=== PATIENT | male | born 1975 | race Caucasian/White ===

== ENCOUNTER 2018-12-14 21:23 | Inpatient (IN) | payer OTHER ==
[~2018-12-14] VITALS: Ht 193 cm; Wt 225.3 kg
[~2018-12-14 21:23] MED LIST: AZIT250 PO; CARI350 PO; CEPH500 PO; CIPR500 PO; CLOT1TC TOP; CYCL10 PO; Cleocin HCl300 MG PO; FISH1000; FURO20; FURO40; FURO40 PO; GEMF600 PO; HYDACE10B PO; HYDACE5 PO; HYDACE5325 PO; HYDGUAL120 PO; LISI10; LISI10 PO; LISI5 PO; NAPR500 PO; OXYACE5T PO; OXYACE7.5T PO; POTCHL10ER; POTCHL20ER; POTCHL20ER PO; Percocet 10-321 EACH PO; RANI150 PO; RXCEPH500 PO; RXOXYACE PO; SERT50; SULTRIDS PO
[2018-12-14 22:00] LABS: BASOPHILS ABSOLUTE AUTO 0.05 K/mm3 (0.00-0.23); BASOPHILS PERCENT AUTO 0 % (0-2); EOSINOPHILS PERCENT AUTO 0 % (0-6); Hemoglobin 16.5 g/dL (13.5-17.5); IMMATURE GRAN ABSOLUTE AUTO 0.22 K/mm3 (0.00-0.10); IMMATURE GRAN PERCENT AUTO 1 % (0-1); LYMPHOCYTES ABSOLUTE AUTO 0.38 K/mm3 (0.84-5.20); LYMPHOCYTES PERCENT AUTO 2 % (21-46); MONOCYTES PERCENT AUTO 2 % (4-13); Mean Corpuscular HGB 31.3 pg (26.0-34.0); Mean Corpuscular HGB Conc 33.7 g/dL (31.5-36.5); Mean Corpuscular Volume 93 fL (80-100); Mean Platelet Volume 9.4 fL (9.1-12.4); NEUTROPHILS PERCENT AUTO 95 % (41-73); Platelet Count 183 K/mm3 (150-400); RDW Coefficient Variation 12.5 % (11.7-14.2); RDW Standard Deviation 43.2 fL (35.1-46.3); Red Blood Cell Count 5.28 M/mm3 (4.30-5.90); White Blood Cell Count 20.65 K/mm3 (4.00-11.30)
[2018-12-14 22:31] LABS: Alanine Aminotransfer (ALT/SGP 39 U/L (12-78); Albumin, Blood 3.7 g/dL (3.4-5.0); Albumin/Globulin Ratio 0.9 (0.8-1.8); Alk Phos 71 U/L (50-136); Anion Gap 10 mmol/L (6-16); Aspartate Aminotrans (AST/SGOT 20 U/L (12-37); Bilirubin, Total 1.1 mg/dL (0.1-1.0); Blood Urea Nitrogen 16 mg/dL (8-24); Bun/Creatinine Ratio 13.2 (12.0-20.0); CO2, Blood 23 mmol/L (21-32); Calcium, Blood 8.8 mg/dL (8.5-10.1); Chloride, Blood 102 mmol/L (98-108); Creatinine, Blood 1.21 mg/dL (0.60-1.20); Globulin, Blood 4.3 g/dL (2.2-4.0); Glomerular Filtration Rate >60 (60-); Glucose, Blood 129 mg/dL (70-99); Potassium, Blood 3.8 mmol/L (3.5-5.5); Sodium, Blood 135 mmol/L (136-145)
[2018-12-14 23:10] LABS: International Normalized Ratio 1.08; Prothrombin Time Results 11.4 Sec (9.7-11.5)
--- NOTE | 2018-12-15 00:30 | NUR ---
RECEIVED HAND OFF FROM ESTER OBRIEN USING SBAR. TRANSPORTED TO ICU 13 VIA STRETCHER. TRANSFERED SELF TO BED WITH STANDBY ASSIST, TOLERATED WELL. AAO X3, KLINE, FOLLOWS ALL COMMANDS. ORIENTED TO ROOM, CALL SYSTEM, AND POC, VOICES UNDERSTANDING. RESPIRATIONS EVEN, RAPID, AND UNLABORED ON ROOM AIR. LUNG SOUNDS CLEAR BILATERALLY. ABDOMEN SOFT AND NONDISTENDED. BOWEL SOUNDS ORESENT IN ALL QUADS. CONTINENT OF BOWEL AND BLADDER, USES COMMODE. RIGHT AND LEFT AC SL PIV'S ARE PATENT, FLUSHING WITH EASE AND GOOD BLOOD RETURN NOTED. SPOUSE AT BEDSIDE, STATES THAT SHE IS GOING HOME TO GET HIS CPAP THAT HE MUST WEAR DUE TO OBSTRUCTIVE SLEEP APNEA WELL SOME OTHER PERSONAL BELONGINGS THAT HE HAS REQUESTED. DENIES PAIN, DISCOMFORT, OR FURTHER NEEDS AT THIS TIME. SAFETY MEAUSRES IN PLACE. ADMISSION ASSESSMENT IN PROGRESS, WILL MEREDITH COOL.
[2018-12-15 01:58] LABS: BASOPHILS ABSOLUTE AUTO 0.03 K/mm3 (0.00-0.23); BASOPHILS PERCENT AUTO 0 % (0-2); EOSINOPHILS PERCENT AUTO 0 % (0-6); Hematocrit 46.7 % (37.0-53.0); Hemoglobin 15.5 g/dL (13.5-17.5); IMMATURE GRAN ABSOLUTE AUTO 0.11 K/mm3 (0.00-0.10); IMMATURE GRAN PERCENT AUTO 1 % (0-1); LYMPHOCYTES ABSOLUTE AUTO 0.57 K/mm3 (0.84-5.20); LYMPHOCYTES PERCENT AUTO 3 % (21-46); MONOCYTES ABSOLUTE AUTO 0.32 K/mm3 (0.16-1.47); MONOCYTES PERCENT AUTO 2 % (4-13); Mean Corpuscular HGB 31.4 pg (26.0-34.0); Mean Corpuscular HGB Conc 33.2 g/dL (31.5-36.5); Mean Corpuscular Volume 95 fL (80-100); Mean Platelet Volume 9.5 fL (9.1-12.4); NEUTROPHILS ABSOLUTE AUTO 16.53 K/mm3 (1.96-9.15); NEUTROPHILS PERCENT AUTO 94 % (41-73); Platelet Count 171 K/mm3 (150-400); RDW Coefficient Variation 12.8 % (11.7-14.2); RDW Standard Deviation 44.1 fL (35.1-46.3); Red Blood Cell Count 4.94 M/mm3 (4.30-5.90); White Blood Cell Count 17.56 K/mm3 (4.00-11.30)
[2018-12-15 02:13] LABS: Anion Gap 7 mmol/L (6-16); Blood Urea Nitrogen 16 mg/dL (8-24); Bun/Creatinine Ratio 12.8 (12.0-20.0); CO2, Blood 25 mmol/L (21-32); Chloride, Blood 105 mmol/L (98-108); Creatinine, Blood 1.25 mg/dL (0.60-1.20); Glomerular Filtration Rate >60 (60-); Glucose, Blood 113 mg/dL (70-99); Potassium, Blood 3.9 mmol/L (3.5-5.5); Sodium, Blood 137 mmol/L (136-145)
--- NOTE | 2018-12-15 06:23 | NUR ---
SHIFT SUMMARY HAS RESTED WELL AFTER ADMISSION TO UNIT. BOLUS' COMPLETED AND MAINTANACE IVF INFUSING WITHOUT DIFFICULTY. POSITIONAL PIV'S, PUMP ALARMS WHEN PT BENDS HIS ARMS, VERY COOPERATIVE WHEN ASKED TO KEEP ELBOWS STRAIGHT. RESTED WELL IN JU[facility] BED AFTER TRANSFERED FROM ICU BED. CURRENTLY ON COMMODE AFTER AMBULATION WITH STAFF ASSISTANCE. WILL GIVE HAND OFF TO ONCOMING SHIFT USING SBAR.
--- NOTE | 2018-12-15 06:40 | NUR ---
LARGE BM NOTED. PT ASSISTED BACK TO BED AND PLACED BACK ON CAPSULE. DENIES FURTHER NEEDS AT THIS TIME. WILL CONTINUE TO MONITOR.
--- NOTE | 2018-12-15 07:15 | NUR ---
START OF SHIFT NOTE: RECEIVED REPORT, ASSUMED CARE, PATIENT IS AWAKE, ALERT AND ORIENTED, LUNG SOUNDS DIMINISHED, PATIENT DENIES PAIN, BUT HAS A TEMP OF 101.9, RECEIVED 2 TYLENOL PO, SWALLOWED WITHOUT ANY PROBLEM, UP TO ROOM TOILET, PATIENT EXTREMELY SHORT OF BREATH JUST FROM GETTING OOB TO TOILET AND BACK TO BED, PATIENT URINATED AND HAD BM, RETURNED TO BED, ATE ONLY SMALL AMOUNT OF BREAKFAST, SOB WITH ANY TYPE OF EXERTION, HEART SOUNDS DISTANT, BILATERAL LOWER EXTREMITIES DISCOLORED, RIGHT LOWER EXTREMITY RED AND WARM, CALL LIGHT IN REACH, WILL CONTINUE TO MONITOR.
--- NOTE | 2018-12-15 08:50 | NUR ---
DR. SULLIVAN CALLED AND UPDATED ON PATIENT CONDITION, PATIENT THRASHING ABOUT IN BED COMPALINING "I AM SO UNCOMFORTABLE AND HOT, WHEN CAN I GO HOME", PER DR. SULLIVAN WILL TRY COOLING BLANKET AND ICE BAGS, CALL LIGHT IN REACH, WILL CONTINUE TO MONITOR.
--- NOTE | 2018-12-15 09:12 | NUR ---
PATIENT ATTACHED TO COOLING BLANKET, ALSO ICE BAGS PLACED TO BOTH AXILLARIES,CALL LIGHT IN REACH, WILL CONTINUE TO MONITOR.
--- NOTE | 2018-12-15 10:24 | NUR ---
DIVYA, CASE MANAGEMENT, IN TO SEE PATIENT, ALSO PATIENT'S CALLED AND WAS PROVIDED AN UPDATE VIA TELEPHONE.
--- NOTE | 2018-12-15 11:30 | NUR ---
DR. SULLIVAN IN TO SEE PATIENT, NO NEW ORDERS RECEIVED.
--- NOTE | 2018-12-15 11:41 | NUR ---
PATIENT CONTINUES TO BE THRASHING ABOUT AND NOT "GETTING COMFORTABLE", TEMPERATURE DOWN TO 99.1, CALL LIGHT IN REACH, WILL CONTINUE TO MONITOR.
--- NOTE | 2018-12-15 13:27 | NUR ---
AND FAMILY IN TO SEE PATIENT, UPDATE ON CONDITION PROVIDED, CALL LIGHT IN REACH, WILL CONTINUE TO MONITOR.
[2018-12-15 15:15] LABS: Adenovirus F 40/41 Not Detected (NOT DETECT); Astrovirus Not Detected (NOT DETECT); Campylobacter Sp Not Detected (NOT DETECT); Cryptosporidium Not Detected (NOT DETECT); Cyclospora Cayetanensis Not Detected (NOT DETECT); E. Coli O157 Not Detected (NOT DETECT); Entamoeba Histolytica Not Detected (NOT DETECT); Enteroaggregative E. coli-EAEC Not Detected (NOT DETECT); Enteropathogenic E. coli-EPEC Not Detected (NOT DETECT); Enterotoxigenic E. coli-ETEC Not Detected (NOT DETECT); Giardia Lamblia Not Detected (NOT DETECT); Norovirus GI/GII Not Detected (NOT DETECT); Plesiomonas Shigelloides Not Detected (NOT DETECT); Rotavirus A Not Detected (NOT DETECT); Salmonella Sp Not Detected (NOT DETECT); Sapovirus Not Detected (NOT DETECT); Shiga Toxin-prod E. coli-STEC Not Detected (NOT DETECT); Shigella/Enteroin E. coli-EIEC Not Detected (NOT DETECT); Vibrio Cholerae Not Detected (NOT DETECT); Vibrio Sp Not Detected (NOT DETECT); Yersinia Enterocolitica Not Detected (NOT DETECT)
--- NOTE | 2018-12-15 15:18 | NUR ---
EDDIE, IMAGING, IN TO DO ORDERED VENOUS DOPPLER, PATIENT COOPERATIVE. ALSO PATIENT RECEIVED 2 TYLENOL 325 MG PO EACH, FOR A TOTAL OF 650 MG, FOR A TEMP OF 102.4, CALL LIGHT IN REACH, WILL CONTINUE TO MONITOR.
--- NOTE | 2018-12-15 16:30 | NUR ---
PATIENT OFF MONITOR, WHEN CHECKED FOUND PATIENT UP IN RECLINER WITH ALL MONITORING DEVICES REMOVED AND L AC PIV REMOVED, PATIENT STATED "I JUST FEEL SO WEIRD, I AM SO HOT AND SWEATY, PATIENT WAS RETURNED TO BE PLACED ON MONITOR AND NEW 20G PIV WAS STARTED IN LAC, PATIENT TOLERATED WELL, AND COOPERATIVE, TEMP WAS WNL, T SHIRT REMOVED AND PATIENT PLACED IN HOSPITAL GOWN, INSTRUCTED AGAIN ON USE OF CALL LIGHT, PATIENT VERBALIZED UNDERSTANDING, CALL LIGHT IN REACH, WILL CONTINUE TO MONITOR, ALSO PATIENT NOW IN ISOLATION FOR POSSIBLE C-DIFF, DETECTED IN STOOL SAMPLE.
--- NOTE | 2018-12-15 17:16 | NUR ---
DR. SULLIVAN CALLED AND UPDATED ON PATIENT CONDITION, NO NEW ORDERS AT THIS TIME.
--- NOTE | 2018-12-15 17:49 | NUR ---
SHIFT SUMMARY NOTE: PATIENT HAS BEEN AND CONTINUES TO BE RESTLESS THROUGHOUT SHIFT, THRASHING ABOUT IN BED, FINALLY UP IN CHAIR, STATED "I CANNOT GET COMFORTABLE", BARIATRIC BED MALFUNCTIONED THIS AM AND WILL BE REPLACED BY ELIAZAR ROBBINS, PATIENT HAS EPISODES OF ELEVATED TEMPERATURE AND THEN GOES TO BEING AFEBRILE, DR. SULLIVAN AWARE AND UPDATED FREQUENTLY, PATIENT DENIES PAIN, STOOL SAMPLE SENT AND C-DIFF DETECTED, TOXINS PENDING, PATIENT NOW IN ISOLATION, IVF INFUSING AC/HS CHEMSTICKS ORDERED BUT NO COVERAGE, BILATERAL LE VENOUS DOPPLER PERFORMED ORDERED, SHOWED NO DVT PRESENT, DIANE AND PATIENTS FATHER IN LAW AT BEDSIDE AND UPDATED, CALL LIGHT IN REACH, WILL CONTINUE TO MONITOR AND GIVE REPORT TO ONCOMING MANAGER HEALTH.
--- NOTE | 2018-12-15 20:00 | NUR ---
[place] of Care: Care assumed at 1900hr. Patient alert and oriented x4, sitting upright in chair in room. Patient independent in room, frequently transfers self from bed to chair without difficulty. VSS, O2-94% on RA. Denies dyspnea/SOB, but appears slightly SOB with exertion, quickly recovers with rest. Bilateral AC peripheral IV's patent and intact. Using toilet or urinal to void without difficulty. RLE redness/swelling, also slightly warm, no change in increased in swelling per day shift RN. Patient also states redness/swelling and pain have improved since arrival to hospital. Denies pain to any other locations. Denies needs for prn pain medications at this time. Call placed to Dr. Lay, received orders for transfer to PCU, CBC and BMP for morning labs, and to D/C IV maintenance fluids. Call light in reach, makes needs known. Will continue to monitor for pain, comfort, safety.
--- NOTE | 2018-12-15 21:35 | NUR ---
Transfer to PCU: Report called to ESTER Abbasi. Patient transferred via bed to PCU 11 without difficulty. Belonging's sent with patient to room.
--- NOTE | 2018-12-15 22:34 | NUR ---
CARE ASSUMPTION PT BROUGHT TO PCU RM 11 FROM ICU BY BED @ APPROX 2130. PT A&O X4. PT SOB W/ ACTIVITY, MAINTAINING SPO2 > 92% ON RA. LUNG SOUNDS CLEAR, DIM IN BASES. MONITOR SHOWS NSR. PT TEMP ELEVATED @ 100.9, MEDICATED PER EMAR. OTHERWISE VSS. PT ABLE TO INDEPENDENTLY AMBULATE IN ROOM. R LOWER LEG RED, HOT TO TOUCH. PT STATES R LEG TENDER. WILL CONTINUE TO MONITOR AND PROVIDE CARE.
[2018-12-16 04:08] LABS: BASOPHILS ABSOLUTE AUTO 0.03 K/mm3 (0.00-0.23); BASOPHILS PERCENT AUTO 0 % (0-2); EOSINOPHILS ABSOLUTE AUTO 0.01 K/mm3 (0.00-0.68); EOSINOPHILS PERCENT AUTO 0 % (0-6); Hematocrit 44.5 % (37.0-53.0); Hemoglobin 15.4 g/dL (13.5-17.5); Mean Corpuscular HGB 31.8 pg (26.0-34.0); Mean Corpuscular HGB Conc 34.6 g/dL (31.5-36.5); Mean Platelet Volume 9.7 fL (9.1-12.4); Platelet Count 120 K/mm3 (150-400); RDW Coefficient Variation 12.8 % (11.7-14.2); RDW Standard Deviation 43.5 fL (35.1-46.3); Red Blood Cell Count 4.84 M/mm3 (4.30-5.90); White Blood Cell Count 8.76 K/mm3 (4.00-11.30)
[2018-12-16 04:11] LABS: IMMATURE GRAN ABSOLUTE AUTO 0.05 K/mm3 (0.00-0.10); IMMATURE GRAN PERCENT AUTO 1 % (0-1); LYMPHOCYTES PERCENT AUTO 8 % (21-46); MONOCYTES ABSOLUTE AUTO 0.38 K/mm3 (0.16-1.47); MONOCYTES PERCENT AUTO 4 % (4-13); Mean Corpuscular Volume 92 fL (80-100); NEUTROPHILS ABSOLUTE AUTO 7.59 K/mm3 (1.96-9.15); NEUTROPHILS PERCENT AUTO 87 % (41-73)
[2018-12-16 04:14] LABS: Anion Gap 7 mmol/L (6-16); Blood Urea Nitrogen 15 mg/dL (8-24); Bun/Creatinine Ratio 13.2 (12.0-20.0); CO2, Blood 23 mmol/L (21-32); Chloride, Blood 105 mmol/L (98-108); Creatinine, Blood 1.14 mg/dL (0.60-1.20); Glomerular Filtration Rate >60 (60-); Glucose, Blood 114 mg/dL (70-99); Potassium, Blood 3.3 mmol/L (3.5-5.5); Sodium, Blood 135 mmol/L (136-145)
--- NOTE | 2018-12-16 05:54 | NUR ---
SHIFT SUMMARY PT CONTINUES TO BE A&O X4. TEMPERATURE ELEVATED, SUCCESSFULLY TX'D PER EMAR X1 THIS SHIFT, OTHERWISE VSS. R LOWER LEG CONINTUES TO BE RED, TENDER, & HOT TO TOUCH. IV ABX GIVEN PER EMAR. PT INTERMITTENTLY RESTLESS, UP IN ROOM, OR SITTING UP IN CHAIR WHEN NOT SLEEPING. LUNG SOUNDS CLEAR, SPO2 > 92% ON RA OR CPAP WHEN SLEEPING. MONITOR SHOWS NSR/ST, HR 70-110. WILL CONTINUE TO MONITOR AND PROVIDE CARE UNTIL REPORT OFF TO DAY SHIFT RN.
--- NOTE | 2018-12-16 07:35 | NUR ---
ASSUMED CARE REPORT FROM ESTER IVEY. PATIENT OOB TO BATHROOM, UP ADLIB AND BACK TO BED WITH CPAP MASK ON. RIGHT LEG RED AND WARM TO TOUCH. ELEVATED. IN ISOLATION FOR CDIFF
--- NOTE | 2018-12-16 07:53 | NUR ---
MD VISIT DR. SULLIVAN IN
--- NOTE | 2018-12-16 12:50 | NUR ---
PATIENT C/O ZIEGLER. HAD BEEN SITTING IN CHAIR WITH LEG DOWN AND LEG BEGAN TO HURT INCREASINGLY. ADVISED TO GET IN BED AND ELEVATE LEG. TYLENOL AND FENTANYL GIVE. COFFEE PROVIDED ALSO FOR ZIEGLER
--- NOTE | 2018-12-16 16:00 | NUR ---
PATIENT UNABLE TO BEAR WEIGHT ON RIGHT FOOT. WALKER PROVIDED TO AMBULATE TO BATHROOM. REFUSED BSC. WILL GIVE FENTANYL FOR 10/10 PAIN RIGHT FOOT AND PROVIDE COOL THERAPY.
--- NOTE | 2018-12-16 17:24 | NUR ---
FOOT PAIN CONTINUES 7-12/23. CONSULTED DR. SULLIVAN AND REC'D ORDERS FOR TORADOL IV Q6PRN
[2018-12-17 04:17] LABS: BASOPHILS ABSOLUTE AUTO 0.03 K/mm3 (0.00-0.23); BASOPHILS PERCENT AUTO 1 % (0-2); EOSINOPHILS ABSOLUTE AUTO 0.09 K/mm3 (0.00-0.68); EOSINOPHILS PERCENT AUTO 2 % (0-6); Hematocrit 38.5 % (37.0-53.0); Hemoglobin 13.1 g/dL (13.5-17.5); Mean Corpuscular HGB 31.7 pg (26.0-34.0); Mean Corpuscular Volume 93 fL (80-100); Mean Platelet Volume 9.9 fL (9.1-12.4); Platelet Count 102 K/mm3 (150-400); RDW Coefficient Variation 13.1 % (11.7-14.2); RDW Standard Deviation 44.9 fL (35.1-46.3); Red Blood Cell Count 4.13 M/mm3 (4.30-5.90)
[2018-12-17 04:19] LABS: IMMATURE GRAN ABSOLUTE AUTO 0.03 K/mm3 (0.00-0.10); IMMATURE GRAN PERCENT AUTO 1 % (0-1); LYMPHOCYTES ABSOLUTE AUTO 1.07 K/mm3 (0.84-5.20); LYMPHOCYTES PERCENT AUTO 18 % (21-46); MONOCYTES ABSOLUTE AUTO 0.37 K/mm3 (0.16-1.47); MONOCYTES PERCENT AUTO 6 % (4-13); NEUTROPHILS ABSOLUTE AUTO 4.31 K/mm3 (1.96-9.15); NEUTROPHILS PERCENT AUTO 73 % (41-73)
[2018-12-17 04:27] LABS: Albumin, Blood 2.4 g/dL (3.4-5.0); Anion Gap 6 mmol/L (6-16); Blood Urea Nitrogen 21 mg/dL (8-24); Bun/Creatinine Ratio 16.8 (12.0-20.0); CO2, Blood 26 mmol/L (21-32); Calcium, Blood 8.1 mg/dL (8.5-10.1); Chloride, Blood 106 mmol/L (98-108); Creatinine, Blood 1.25 mg/dL (0.60-1.20); Glomerular Filtration Rate >60 (60-); Glucose, Blood 129 mg/dL (70-99); Phosphorus, Blood 2.7 mg/dL (2.5-4.9); Potassium, Blood 3.4 mmol/L (3.5-5.5); Sodium, Blood 138 mmol/L (136-145)
--- NOTE | 2018-12-17 06:22 | NUR ---
SHIFT SUMMARY PT A&O X4. VSS. PT C/O R LEG PAIN AND HEADACHE, MEDICATING PER EMAR/PT REQUEST. R LEG CONTINUES TO BE SWOLLEN, RED, AND HOT TO TOUCH. PT ENCOURAGED TO KEEP LEG ELEVATED. MONITOR SHOWS NSR. SPO2 > 92% ON RA OR CPAP WHILE SLEEPING. PT INDEPENDENT IN ROOM. PT DENIES FURTHER BM'S THIS SHIFT.
--- NOTE | 2018-12-17 10:07 | NUR ---
RIGHT LE PAIN DR SULLIVAN HAD INCREASED THE FENTAYL DOSE THIS AM. GAVE THE LARGER DOSE TO PT WITH NO APPARRENT RELIEF. CALLED Robin SULLIVAN . ORDER FOR ASIYA RECEIVED. CONTINUE POT.
--- NOTE | 2018-12-17 18:30 | NUR ---
PAIN CONTROL PT RIGHT LE PAIN HAS BEEN HIGH ALL DAY. MULTIPLE DIFFERENT CALLS TO DR SULLIVAN TO CHANGE PAIN MEDICATIONS. DILAUDOD 0.5MG IV SEEMS TO HAVE DONE THE TRICK. PT IS A LITTLE GROGGY BUT ALERT. HIS LEG IS MUCH MORE COMFORTABLE. PAIN MUCH IMPROVED. HE CAN NOW TOLERATE LIFTING HIS LEG OFF THE PILLOW WITHOUT CRYING OUT. CONTINUE POT.
[2018-12-18 04:03] LABS: BASOPHILS ABSOLUTE AUTO 0.04 K/mm3 (0.00-0.23); BASOPHILS PERCENT AUTO 1 % (0-2); EOSINOPHILS PERCENT AUTO 1 % (0-6); Hematocrit 36.2 % (37.0-53.0); Hemoglobin 12.2 g/dL (13.5-17.5); IMMATURE GRAN ABSOLUTE AUTO 0.07 K/mm3 (0.00-0.10); IMMATURE GRAN PERCENT AUTO 1 % (0-1); LYMPHOCYTES ABSOLUTE AUTO 1.72 K/mm3 (0.84-5.20); LYMPHOCYTES PERCENT AUTO 21 % (21-46); MONOCYTES ABSOLUTE AUTO 0.63 K/mm3 (0.16-1.47); MONOCYTES PERCENT AUTO 8 % (4-13); Mean Corpuscular HGB 31.6 pg (26.0-34.0); Mean Corpuscular HGB Conc 33.7 g/dL (31.5-36.5); Mean Corpuscular Volume 94 fL (80-100); Mean Platelet Volume 10.5 fL (9.1-12.4); NEUTROPHILS ABSOLUTE AUTO 5.57 K/mm3 (1.96-9.15); NEUTROPHILS PERCENT AUTO 69 % (41-73); Platelet Count 111 K/mm3 (150-400); RDW Coefficient Variation 13.3 % (11.7-14.2); RDW Standard Deviation 45.5 fL (35.1-46.3); Red Blood Cell Count 3.86 M/mm3 (4.30-5.90); White Blood Cell Count 8.13 K/mm3 (4.00-11.30)
[2018-12-18 04:18] LABS: Albumin, Blood 2.3 g/dL (3.4-5.0); Anion Gap 8 mmol/L (6-16); Blood Urea Nitrogen 16 mg/dL (8-24); Bun/Creatinine Ratio 16.2 (12.0-20.0); CO2, Blood 24 mmol/L (21-32); Calcium, Blood 7.8 mg/dL (8.5-10.1); Chloride, Blood 107 mmol/L (98-108); Creatinine, Blood 0.99 mg/dL (0.60-1.20); Glomerular Filtration Rate >60 (60-); Glucose, Blood 122 mg/dL (70-99); Phosphorus, Blood 3.4 mg/dL (2.5-4.9); Potassium, Blood 3.5 mmol/L (3.5-5.5); Sodium, Blood 139 mmol/L (136-145)
--- NOTE | 2018-12-18 08:11 | NUR ---
SHIFT SUMMARY PT A&O X4, VSS, INDEPENDENT IN ROOM. PT C/O R LEG PAIN W/ LITTLE SUCCESS IN PAIN CONTROL W/ MEDICATIONS PER EMAR T/O SHIFT. PT REPORTS QUICK ONSET OF RELIEF UPON IV MEDICATION ADMINISTRATION, BUT MEDICATION DOES NOT AID W/ PAIN THAT COMES W/ WEIGHT BEARING AND AMBULATION. R LEG CONTINUES TO BE BRIGHT RED, SWOLLEN, AND HOT TO TOUCH. PT STATES R CALF REGION TO BE AREA OF MOST PAIN. OTHERWISE NO FURTHER EVENTS OVER NIGHT. PT VERY PLEASANT AND COOPERATIVE DESPITE PERSISTENT PAIN. LUNG SOUNDS CLEAR. SPO2 > 92% ON RA OR CPAP WHILE SLEEPING. MONITOR SHOWS NSR. REPORT GIVEN TO DAY SHIFT RN.
--- NOTE | 2018-12-18 10:01 | NUR ---
AM NOTE PT ALERT AND ORIENTED. HE EXPRESSED THAT THE DILKHADIJAH AND NORCO IS DOING A BETTER JOB AT MANAGING HIS PAIN. PT UP TO BATHROOM AD CYNDEE WITH FWW. PT PAIN INCREASES SIGNIFANCANTLY WITH WALKING. PT KEEPING HIS RIGHT LE ELEVATED ON PILLOW. REDNESS STABLE FROM YESTERDAY. GOOD APPETITE. DR SULLIVAN Has BEEN IN TO SEE HIM. CONTINUE POT.
--- NOTE | 2018-12-18 20:32 | NUR ---
TRANSFER NOTE PATIENT TRANSFERED VIA BED BY BERTO CRUZ AND PRELIMIN[employer] SCHOOL PSYCHOLOGIST TIESHA ABRAMS AT THIS TIME. REPORT GIVEN BY LETA WILLIS RN. PATIENT TRANSFERED TO ROOM 325 AT APPROX 2009. ALL BELONGINGS GATHERED AND SENT WITH PATIENT.
[2018-12-19 04:56] LABS: BASOPHILS ABSOLUTE AUTO 0.03 K/mm3 (0.00-0.23); BASOPHILS PERCENT AUTO 0 % (0-2); EOSINOPHILS ABSOLUTE AUTO 0.19 K/mm3 (0.00-0.68); EOSINOPHILS PERCENT AUTO 2 % (0-6); Hematocrit 35.9 % (37.0-53.0); Hemoglobin 11.7 g/dL (13.5-17.5); IMMATURE GRAN ABSOLUTE AUTO 0.16 K/mm3 (0.00-0.10); IMMATURE GRAN PERCENT AUTO 2 % (0-1); LYMPHOCYTES ABSOLUTE AUTO 1.73 K/mm3 (0.84-5.20); LYMPHOCYTES PERCENT AUTO 22 % (21-46); MONOCYTES ABSOLUTE AUTO 0.67 K/mm3 (0.16-1.47); MONOCYTES PERCENT AUTO 8 % (4-13); Mean Corpuscular HGB 31.3 pg (26.0-34.0); Mean Corpuscular HGB Conc 32.6 g/dL (31.5-36.5); Mean Corpuscular Volume 96 fL (80-100); Mean Platelet Volume 10.3 fL (9.1-12.4); NEUTROPHILS ABSOLUTE AUTO 5.28 K/mm3 (1.96-9.15); NEUTROPHILS PERCENT AUTO 65 % (41-73); Platelet Count 129 K/mm3 (150-400); RDW Coefficient Variation 13.5 % (11.7-14.2); RDW Standard Deviation 48.3 fL (35.1-46.3); Red Blood Cell Count 3.74 M/mm3 (4.30-5.90); White Blood Cell Count 8.06 K/mm3 (4.00-11.30)
[2018-12-19 05:16] LABS: Albumin, Blood 2.2 g/dL (3.4-5.0); Anion Gap 6 mmol/L (6-16); Blood Urea Nitrogen 15 mg/dL (8-24); Bun/Creatinine Ratio 17.8 (12.0-20.0); CO2, Blood 28 mmol/L (21-32); Calcium, Blood 8.2 mg/dL (8.5-10.1); Chloride, Blood 104 mmol/L (98-108); Creatinine, Blood 0.84 mg/dL (0.60-1.20); Glomerular Filtration Rate >60 (60-); Glucose, Blood 113 mg/dL (70-99); Phosphorus, Blood 3.8 mg/dL (2.5-4.9); Potassium, Blood 3.7 mmol/L (3.5-5.5); Sodium, Blood 138 mmol/L (136-145)
--- NOTE | 2018-12-19 06:15 | NUR ---
permission and photo of leg in chart, leg remains painful but no request for pain medication for the last few hours, call light in reach, saline locked, CPAP in use, a+o, very cooperative had difficulty with conflicting orders and pt was very gracious through out, will continue to montiror and treat until complete bsr with day staff
--- NOTE | 2018-12-19 18:07 | NUR ---
SHIFT SUMMARY- PT C/O R LEG PAIN. MEDS GIVEN PER EMAR. PT DENIES N/V. DENIES SOB. RESP E/U ON RA. INDEPENDENT IN THE ROOM THIS PM. NO OTHER SIGNIFICANT CHANGES THIS SHIFT.
[2018-12-20 05:14] LABS: BASOPHILS ABSOLUTE AUTO 0.03 K/mm3 (0.00-0.23); BASOPHILS PERCENT AUTO 0 % (0-2); EOSINOPHILS ABSOLUTE AUTO 0.19 K/mm3 (0.00-0.68); EOSINOPHILS PERCENT AUTO 2 % (0-6); Hematocrit 35.8 % (37.0-53.0); Hemoglobin 11.8 g/dL (13.5-17.5); IMMATURE GRAN ABSOLUTE AUTO 0.36 K/mm3 (0.00-0.10); IMMATURE GRAN PERCENT AUTO 4 % (0-1); LYMPHOCYTES ABSOLUTE AUTO 1.96 K/mm3 (0.84-5.20); LYMPHOCYTES PERCENT AUTO 22 % (21-46); MONOCYTES ABSOLUTE AUTO 0.66 K/mm3 (0.16-1.47); MONOCYTES PERCENT AUTO 7 % (4-13); Mean Corpuscular HGB 30.9 pg (26.0-34.0); Mean Corpuscular Volume 94 fL (80-100); Mean Platelet Volume 9.8 fL (9.1-12.4); NEUTROPHILS ABSOLUTE AUTO 5.72 K/mm3 (1.96-9.15); NEUTROPHILS PERCENT AUTO 64 % (41-73); Platelet Count 175 K/mm3 (150-400); RDW Coefficient Variation 13.3 % (11.7-14.2); RDW Standard Deviation 45.5 fL (35.1-46.3); Red Blood Cell Count 3.82 M/mm3 (4.30-5.90); White Blood Cell Count 8.92 K/mm3 (4.00-11.30)
[2018-12-20 05:46] LABS: Albumin, Blood 2.3 g/dL (3.4-5.0); Anion Gap 7 mmol/L (6-16); Blood Urea Nitrogen 13 mg/dL (8-24); CO2, Blood 28 mmol/L (21-32); Calcium, Blood 8.2 mg/dL (8.5-10.1); Chloride, Blood 102 mmol/L (98-108); Creatinine, Blood 0.76 mg/dL (0.60-1.20); Glomerular Filtration Rate >60 (60-); Glucose, Blood 110 mg/dL (70-99); Potassium, Blood 3.5 mmol/L (3.5-5.5); Sodium, Blood 137 mmol/L (136-145)
--- NOTE | 2018-12-20 06:29 | NUR ---
call light in reach, wide bed, calls for pain medication, able to transfer to bathroom on own, saline locked, room air, bed in lowest position but that is still quite a ways up, will continue to monitor and treat until share bsr with day shift, no significant change noted in condition.
--- NOTE | 2018-12-20 17:15 | NUR ---
SHIFT SUMMARY- PT A/OX4, INDEP UP TO BATHROOM WITH FWW. PT MEDICATED T/O THE DAY FOR RIGHT LEG PAIN WITH A DULL ACHE THAT WORSENS WITH MOVEMENT. PT SAHRA ANY OTHER COMPLAINTS. REDNESS TO RIGHT LEG DECREASING COMPARED TO PREVIOUS OUTLINES. NO OTHER ACUTE CHANGES THIS SHIFT.
--- NOTE | 2018-12-21 05:46 | NUR ---
SHIFT SUMMARY RLE CELLULITIS IS RED, INFLAMMED, AND WARM TO TOUCH. TRACING AROUND CELLULITIS INDICATES SOME DECREASE IN SIZE. AREA IS EXTREMELY PAINFUL TO PT AND REQUIRES FREQUENT PAIN MEDS TO CONTROL PAIN, DILAUDID Q4H AND NORCO Q4H. ANCEF Q8H PER ORDERS. PT IS A&O, INDEPENDENT IN RM. VSS, AFEBRILE. PT IS RESTING IN BED AT THIS TIME, CALL LT IN REACH. WILL CONT TO MONITOR AND PROVIDE CARE UNTIL PRESUMED BY ONCOMING RN.
--- NOTE | 2018-12-21 18:04 | NUR ---
SHIFT SUMMARY- PT A/OX4, INDEP TO BATHROOM. PT MEDICATED T/O THE SHIFT FOR PAIN TO RLE. RLE REMAINS RED, SWOLLEN AND WARM. PT STARTED ON IV VANCO WELL. WOUND SWAB SENT. LS CLEAR, ON RA. CPAP AT HS. BM TODAY. PT CONT TO HAVE POOR APETITE BUT IMPROVING. NO OTHER ACUTE CHANGES THIS SHIFT.
--- NOTE | 2018-12-22 03:48 | NUR ---
SHIFT SUMMARY RLE IS SWOLLEN, RED, AND WARM TO THE TOUCH. OPEN BLISTER ON TOP OF FT, DRY, 1.5" WIDE. SWABS SENT BY DAYSHIFT RN, RESULTS PENDING. PT IS REQUIRING PAIN MEDS FREQUENTLY TO CONTROL PAIN, BOTH ORAL AND IV. HOME CPAP IN FOR PM USE. NO OTHER CHANGES TO REPORT. WILL CONT TO MONITOR AND PROVIDE CARE UNTIL PRESUMED BY ONCOMING RN.
[2018-12-22 05:17] LABS: BASOPHILS ABSOLUTE AUTO 0.03 K/mm3 (0.00-0.23); BASOPHILS PERCENT AUTO 0 % (0-2); EOSINOPHILS PERCENT AUTO 3 % (0-6); Hematocrit 34.2 % (37.0-53.0); Hemoglobin 11.3 g/dL (13.5-17.5); IMMATURE GRAN ABSOLUTE AUTO 0.35 K/mm3 (0.00-0.10); IMMATURE GRAN PERCENT AUTO 5 % (0-1); LYMPHOCYTES ABSOLUTE AUTO 1.48 K/mm3 (0.84-5.20); LYMPHOCYTES PERCENT AUTO 21 % (21-46); MONOCYTES ABSOLUTE AUTO 0.72 K/mm3 (0.16-1.47); MONOCYTES PERCENT AUTO 10 % (4-13); Mean Corpuscular Volume 94 fL (80-100); Mean Platelet Volume 9.3 fL (9.1-12.4); NEUTROPHILS PERCENT AUTO 61 % (41-73); Platelet Count 251 K/mm3 (150-400); RDW Coefficient Variation 13.1 % (11.7-14.2); RDW Standard Deviation 45.2 fL (35.1-46.3); Red Blood Cell Count 3.65 M/mm3 (4.30-5.90); White Blood Cell Count 7.08 K/mm3 (4.00-11.30)
[2018-12-22 05:37] LABS: Albumin, Blood 2.1 g/dL (3.4-5.0); Anion Gap 6 mmol/L (6-16); Blood Urea Nitrogen 11 mg/dL (8-24); Bun/Creatinine Ratio 14.7 (12.0-20.0); CO2, Blood 28 mmol/L (21-32); Calcium, Blood 8.2 mg/dL (8.5-10.1); Chloride, Blood 104 mmol/L (98-108); Creatinine, Blood 0.75 mg/dL (0.60-1.20); Glomerular Filtration Rate >60 (60-); Glucose, Blood 111 mg/dL (70-99); Phosphorus, Blood 3.3 mg/dL (2.5-4.9); Potassium, Blood 3.6 mmol/L (3.5-5.5); Sodium, Blood 138 mmol/L (136-145)
[2018-12-22 10:43] LABS: Vancomycin, Trough 11.4 ug/mL (5.0-10.0)
--- NOTE | 2018-12-22 18:05 | NUR ---
RLE REDDENED, SWOLLEN, WARM TO TOUCH. OPEN AREA ON TOP OF FOOT IS DRIED, NO DRAINAGE. PT ABLE TO AMBULATE TO BATHROOM WITH WALKER TO VOID. PT HAD A BM TODAY. LS CLEAR ON RA. PAIN CONTROLLED SOMEWHAT, ALTERNATING TYPES OF PAIN MEDICATION Q2 HR. WILL CONTINUE TO MONITOR.
--- NOTE | 2018-12-23 04:30 | NUR ---
SHIFT SUMMARY PT REQUIRING PAIN MEDS FREQUENTLY TO MANAGE PAIN TO RLE. SWELLING AND REDNESS TO RLE SHOWS VERY LITTLE IMPROVEMENT OVER THE COURSE OF THE THREE NIGHTS THIS RN HAS PROVIDED CARE TO PT. ANCEF ADMINISTERED Q8H PER EMAR. VSS. PT INDEPENDENT IN RM, USING FWW FOR AMBULATION. GAIT IS WEAK AND UNABLE TO BARE MUCH WEIGHT ON RLE. RLE ELEVATED ON PILLOWS. HOME CPAP ON FOR THE NIGHT. PT RESTING IN BED AT THIS TIME, CALL LT IN REACH. WILL CONT TO MONITOR AND PROVIDE CARE UNTIL PRESUMED BY ONCOMING RN.
[2018-12-23 04:41] LABS: BASOPHILS ABSOLUTE AUTO 0.04 K/mm3 (0.00-0.23); BASOPHILS PERCENT AUTO 1 % (0-2); EOSINOPHILS ABSOLUTE AUTO 0.19 K/mm3 (0.00-0.68); EOSINOPHILS PERCENT AUTO 3 % (0-6); Hematocrit 35.5 % (37.0-53.0); Hemoglobin 11.6 g/dL (13.5-17.5); IMMATURE GRAN ABSOLUTE AUTO 0.18 K/mm3 (0.00-0.10); IMMATURE GRAN PERCENT AUTO 2 % (0-1); LYMPHOCYTES ABSOLUTE AUTO 1.82 K/mm3 (0.84-5.20); LYMPHOCYTES PERCENT AUTO 24 % (21-46); MONOCYTES ABSOLUTE AUTO 0.75 K/mm3 (0.16-1.47); MONOCYTES PERCENT AUTO 10 % (4-13); Mean Corpuscular HGB 31.5 pg (26.0-34.0); Mean Corpuscular HGB Conc 32.7 g/dL (31.5-36.5); Mean Platelet Volume 9.2 fL (9.1-12.4); NEUTROPHILS ABSOLUTE AUTO 4.66 K/mm3 (1.96-9.15); NEUTROPHILS PERCENT AUTO 61 % (41-73); Platelet Count 292 K/mm3 (150-400); RDW Coefficient Variation 12.9 % (11.7-14.2); RDW Standard Deviation 46.2 fL (35.1-46.3); Red Blood Cell Count 3.68 M/mm3 (4.30-5.90); White Blood Cell Count 7.64 K/mm3 (4.00-11.30)
[2018-12-23 04:43] LABS: Mean Corpuscular Volume 97 fL (80-100)
[2018-12-23 04:55] LABS: Albumin, Blood 2.1 g/dL (3.4-5.0); Anion Gap 5 mmol/L (6-16); Blood Urea Nitrogen 12 mg/dL (8-24); Bun/Creatinine Ratio 15.4 (12.0-20.0); CO2, Blood 29 mmol/L (21-32); Calcium, Blood 8.2 mg/dL (8.5-10.1); Chloride, Blood 105 mmol/L (98-108); Creatinine, Blood 0.78 mg/dL (0.60-1.20); Glomerular Filtration Rate >60 (60-); Glucose, Blood 103 mg/dL (70-99); Potassium, Blood 3.9 mmol/L (3.5-5.5); Sodium, Blood 139 mmol/L (136-145)
--- NOTE | 2018-12-23 14:47 | NUR ---
SHIFT SUMMARY PT AWAKE, LYING HF, DURING SHIFT REPORT. ADMITTED FOR SEVERE SEPSIS R/T RLE CELLULITIS. REDNESS AND SWELLING TO RLE. SCAB ON TOP OF R FOOT; PER SHIFT REPORT, FROM BROKEN BLISTER. PT MEDICATED PER EMAR FOR PAIN. RECEIVING IV ABX TO LW Q8 HRS. DR CANALES IN TO SEE PT THIS AM, CHANGING MEDS. MORBIDLY OBESE, PT NAPPING OFF AND ON WEARING HOME CPAP WHEN SLEEPING. UP INDEPENDENTLY TO BTHRM, USING FWW. PT IN CONTACT ISO FOR C-DIFF. FAMILY IN TO VISIT AT THIS TIME. CALL LT IN REACH.
--- NOTE | 2018-12-24 13:48 | NUR ---
SHIFT SUMMARY PT AWAKE DURING SHIFT REPORT. PT REPORTED IMPROVEMENT IN PAIN AND SWELLING TO RLE AFTER ABX CHANGED YESTERDAY. AUTOMATIC COIL MACHINE OPERATOR MADE SEVERAL ATTEMPTS TO ENCOURAGE PT TO TAKE A SHOWER TODAY, PT STATED THAT HE WOULD CALL WHEN READY. PT HAS NOT CALLED. WILL ENCOURAGE PT TO SIT IN CHAIR AT BS AND SOAK HIS FEET, WHILE BED LINEN CHANGED. FEET VERY DIRTY, WITH FUNGUS ON TOENAILS. ORDER OBTAINED FOR PT TO USE HOME CPAP. RT NOTIFIED FOR CONTINOUS BIOX PROTOCOL. PT UNABLE TO TOLERATE BEING ATTACHED TO FINGER PROBE. REFUSAL CONSENT SIGNED AND PLACED IN CHART. DR CANALES IN TO SEE PT AND ASSESS RLE. IMPROVEMENT MADE IN REDNESS AND SWELLING. PT HAS BEEN UP TO BTHRM INDEPENDENTLY USING FWW. PT REPORTED NOT USING FWW ONCE, WHEN IV ABX INFUSING, AND FEELS THAT HE PUT TOO MUCH WT ON RLE RESULTING IN SOME PAIN INCREASE. PLACED 2 LRG ICE PACKS ON RLE, TO HELP REDUCE PAIN AND SWELLING. PT UNABLE TO TOLERATE, EVEN WITH BLANKETS BETWEEN ICE PACKS. DECLINED WARM PACKS. PT MEDICATED PER EMAR FOR C/O PAIN. PT THEN WENT TO SLEEP. IV TO LW BECAME PAINFUL, BRIEFLY, DURING ABX INFUSION. COBAN REMOVED AND PAIN WENT AWAY. REMAINING ABX INFUSED WNL'S. MIRYAM NORMAN ATTEMPTING TO PLACE NEW IV AT THIS TIME, PRIOR TO NEEDING AN IV FOR 1800 ABX. PT POSSIBLE D/C TOMORROW, IF REDNESS AND SWELLING CONTINUE TO DECREASE. WILL NEED TO CONTINUE WITH PO ABX WHEN D/C'D. PT LOOKING FORWARD TO GOING HOME; HAS BEEN HERE LONGER THAN ANTICIPATED. CALL LT IN REACH. ABLE TO MAKE NEEDS KNOWN.
--- NOTE | 2018-12-24 17:12 | NUR ---
PT'S HERE TO VISIT PT AND ABLE TO ENCOURAGE PT TO TAKE A SHOWER. ARRANGEMENTS HAD BEEN MADE TO MOVE PT TO A DIFFERENT RM, 308, IN ORDER TO ACCOMODATE HIS SIZE TO A BIGGER SHOWER AREA WITH SIZE APPROPRIATE SHOWER CHAIR. PT DECLINED TO MOVE EVEN THOUGH MULTIPLE STAFF ATTEMPTED TO ENCOURAGE PT. TO ASSIST PT IN SHOWER WHILE FLIGHT ENGINEER INSTRUCTOR AND THIS RN CHANGED PT'S LINEN. REQUESTED TO WRAP PT'S NEW IV, SHE USED TO BE A FLIGHT ENGINEER INSTRUCTOR HERE, PER HER REPORT. PT BACK TO BED AT THIS TIME, RESTING QUIETLY, VISITING WITH .
--- NOTE | 2018-12-25 02:43 | NUR ---
43 year old Male hospitalized since 12/14/18 with RT LE cellulitis and sepsis. PT spent time in ICU prior to being on medical floor. He has reddened warm edematous rt le with rt foot dry scab and thin tight rt le with areas of thin skin. PT has rt le elevated on pillow to decrease edema and continues on 2 gram ancef IV Q 6 hours . He continues to require 2 norco 5/325 mg tabs approx. every 4 hours due to pain of 6 or 7 in rt le with helpful effect. he is up indep in room usinf fww. He uses home cpap or room air. VSS and pain controlled on oral medications. In enteric precautions for cdifff positive x 1 without current s/sx. He requires routine bowel care to promote regular BM"S.
--- NOTE | 2018-12-25 05:19 | NUR ---
PT WITH HX OF PRIOR SEPTIC CELLULITIS LAST WAS 6 YEARS AGO AND HE COMPLETED 6 WEEKS BID OUTPT ANTIBIOTICS TO TREAT. hIS rt LE REMAINS EDEMATOUS PAINFUL AND REDNESS PERSIST BUT SHRINKING. He has scars on lt LE from old cellulitis and at times LT le also feels hot but no redness exsists. His wound culture grew staph a and he had positive then negative cdiff test. PT owns longterm, and has been group caregiver for many years. , encouraged better foot hygiene and asked if he can get footnail care assist from . Toenails long horny thick yellowed. Showered yesterday. Medicated several times due to rt le pain constant. Uses home cpap.
--- NOTE | 2018-12-25 17:43 | NUR ---
SHIFT SUMMARY NO ACUTE CHANGES THIS SHIFT. PT RECEIVING 2 NORCO FOR PAIN MANAGEMENT. ELEVATING BLE TOLERATED. PT INDEP IN ROOM USING WALKER. PT REPORTS CELLULITIS IMPROVING. IV IS SL EXCEPT FOR ABX. CONTINUING DIURETICS PER ORDERS. USES CPAP WHEN SLEEPING. USES CALL LIGHT APPROPRIATELY.
[2018-12-26 05:01] LABS: BASOPHILS ABSOLUTE AUTO 0.03 K/mm3 (0.00-0.23); BASOPHILS PERCENT AUTO 0 % (0-2); EOSINOPHILS ABSOLUTE AUTO 0.16 K/mm3 (0.00-0.68); EOSINOPHILS PERCENT AUTO 2 % (0-6); Hematocrit 37.9 % (37.0-53.0); Hemoglobin 12.5 g/dL (13.5-17.5); IMMATURE GRAN ABSOLUTE AUTO 0.07 K/mm3 (0.00-0.10); IMMATURE GRAN PERCENT AUTO 1 % (0-1); LYMPHOCYTES ABSOLUTE AUTO 2.35 K/mm3 (0.84-5.20); LYMPHOCYTES PERCENT AUTO 26 % (21-46); MONOCYTES ABSOLUTE AUTO 0.77 K/mm3 (0.16-1.47); MONOCYTES PERCENT AUTO 9 % (4-13); Mean Corpuscular HGB 30.3 pg (26.0-34.0); Mean Platelet Volume 8.7 fL (9.1-12.4); NEUTROPHILS ABSOLUTE AUTO 5.62 K/mm3 (1.96-9.15); NEUTROPHILS PERCENT AUTO 62 % (41-73); Platelet Count 374 K/mm3 (150-400); RDW Coefficient Variation 12.7 % (11.7-14.2); RDW Standard Deviation 42.9 fL (35.1-46.3); Red Blood Cell Count 4.12 M/mm3 (4.30-5.90)
[2018-12-26 05:03] LABS: Mean Corpuscular Volume 92 fL (80-100)
[2018-12-26 05:24] LABS: Anion Gap 8 mmol/L (6-16); Blood Urea Nitrogen 11 mg/dL (8-24); Bun/Creatinine Ratio 12.7 (12.0-20.0); CO2, Blood 28 mmol/L (21-32); Calcium, Blood 8.8 mg/dL (8.5-10.1); Chloride, Blood 100 mmol/L (98-108); Creatinine, Blood 0.87 mg/dL (0.60-1.20); Glomerular Filtration Rate >60 (60-); Glucose, Blood 109 mg/dL (70-99); Potassium, Blood 3.7 mmol/L (3.5-5.5); Sodium, Blood 136 mmol/L (136-145)
--- NOTE | 2018-12-26 05:54 | NUR ---
SHIFT SUMMARY RLE IS RED, SWOLLEN, AND WARM TO TOUCH. ADMINISTERED ANCEF Q6H PER EMAR ORDERS, AND 2 TABS NORCO Q4H PRN FOR PAIN. VSS, AFEBRILE. PT IS INDEPENDENT IN RM, ABLE TO BEAR VERY LITTLE WEIGHT TO RLE. PT RESTING IN BED AT THIS TIME, CALL LT IN REACH. WILL CONT TO MONITOR AND PROVIDE CARE UNTIL PRESUMED BY ONCOMING RN.
--- NOTE | 2018-12-26 17:02 | NUR ---
PATIENT IS ALERT AND ORIENTED AND COOPERATIVE WITH CARE. RLE PAIN TREATED PER EMAR. PATIENT IS INDEPENDENT TO THE BATHROOM. NO FAMILY AT THE BEDSIDE TODAY. NO COMPLAINTS OTHER THAN FOR RLE PAIN. WILL CONTINUE TO MONITOR.
--- NOTE | 2018-12-27 05:07 | NUR ---
SHIFT SUMMARY RLE IS RED, WARM, INFLAMMED. DECREASING IN SIZE COMPARED TO ORIGINAL TRACINGS. PT ALSO REPORTS PAIN IS IMPROVING AND HE IS ABLE TO TOLERATE BEARING WT TO RLE BETTER. TREATED FOR PAIN c PRN NORCO ORDERED. ADMINISTERED ANCEF Q6H PER ORDERS. PT IS INDEPENDENT IN RM, CALM/COOPERATIVE c CARE. PT EXPRESSES FEAR OF BEING D/C'd HOME TOO EARLY AND "GETTING WORSE" AND HAVING TO COME BACK TO HOSPITAL. OFFERED THERAPEUTIC LISTENING TO PT. PT RESTING IN BED AT THIS TIME, CALL LT IN REACH. WILL CONT TO MONITOR AND PROVIDE CARE UNTIL PRESUMED BY ONCOMING RN.
[2018-12-27 05:18] LABS: BASOPHILS ABSOLUTE AUTO 0.03 K/mm3 (0.00-0.23); BASOPHILS PERCENT AUTO 0 % (0-2); EOSINOPHILS ABSOLUTE AUTO 0.15 K/mm3 (0.00-0.68); EOSINOPHILS PERCENT AUTO 2 % (0-6); Hematocrit 41.3 % (37.0-53.0); Hemoglobin 13.7 g/dL (13.5-17.5); IMMATURE GRAN ABSOLUTE AUTO 0.04 K/mm3 (0.00-0.10); IMMATURE GRAN PERCENT AUTO 1 % (0-1); LYMPHOCYTES ABSOLUTE AUTO 2.55 K/mm3 (0.84-5.20); LYMPHOCYTES PERCENT AUTO 29 % (21-46); MONOCYTES ABSOLUTE AUTO 0.71 K/mm3 (0.16-1.47); MONOCYTES PERCENT AUTO 8 % (4-13); Mean Corpuscular HGB 30.8 pg (26.0-34.0); Mean Corpuscular HGB Conc 33.2 g/dL (31.5-36.5); Mean Corpuscular Volume 93 fL (80-100); Mean Platelet Volume 8.8 fL (9.1-12.4); NEUTROPHILS ABSOLUTE AUTO 5.32 K/mm3 (1.96-9.15); NEUTROPHILS PERCENT AUTO 60 % (41-73); Platelet Count 453 K/mm3 (150-400); RDW Coefficient Variation 12.4 % (11.7-14.2); RDW Standard Deviation 42.7 fL (35.1-46.3); Red Blood Cell Count 4.45 M/mm3 (4.30-5.90)
[2018-12-27 05:47] LABS: Anion Gap 10 mmol/L (6-16); Blood Urea Nitrogen 13 mg/dL (8-24); Bun/Creatinine Ratio 15.7 (12.0-20.0); CO2, Blood 30 mmol/L (21-32); Calcium, Blood 9.2 mg/dL (8.5-10.1); Chloride, Blood 95 mmol/L (98-108); Creatinine, Blood 0.83 mg/dL (0.60-1.20); Glomerular Filtration Rate >60 (60-); Glucose, Blood 108 mg/dL (70-99); Potassium, Blood 3.5 mmol/L (3.5-5.5); Sodium, Blood 135 mmol/L (136-145)
--- NOTE | 2018-12-27 14:42 | NUR ---
PT C/O RLE PAIN. MEDS GIVEN PER EMAR. DENIES SOB. RESP E/U ON RA. DENIES N/V. PT REPORTS DIZZINESS THIS AFTERNOON AFTER GETTING UP TO THE BATHROOM. PT REPORTS IT RESOLVED ONCE HE WAS BACK IN BED AND SITTING DOWN FOR A COUPLE MINUTES. REMINDED PT TO GET UP SLOWLY AND TO CALL FOR ASSISTANCE NEXT TIME HE NEEDS TO USE THE BATHROOM. NO OTHER SIGNIFICANT CHANGES.
--- NOTE | 2018-12-27 17:24 | NUR ---
SHIFT SUMMARY NO CHANGES SINCE I ASSUMED CARE OF PATIENT THIS AFTERNOON. NO RECURRENCE OF DIZZINESS. CONTINUED TO MEDICATE Q4 WITH PRN PAIN MEDICATIONS FOR R LEG PAIN. REDNESS AND EDEMA UNCHANGED FROM WHEN I ASSUMED CARE. POSS DC TOMORROW.
--- NOTE | 2018-12-28 03:03 | NUR ---
43 year old Male with 2nd Septic cellulitis in 6 year period the last was lt le cellulitis. Current episode occurred when rt le developed rt foot blister that is 50 cent piece size and rt le became red hot swelling. No drainage. Wound culture showed staph aurus non resistant to methacillins. PT has been recieving 2 grams cefazolin Q 6 hours and required multiple IV restarts over 2 week period. He has said around 12 IVs have been established. He still has generalized edema but states good effect of using xaraloxalyn 1 hr prior to lasix. He says possible dc home today with oral antibiotics. Last episode of septic cellulitis he had 6 weeks of outpt iv antibiotics BID. He continues with minimal complaints except RT LE pain, tx q 4 hours with norco 5/325 mg two. No diarrhea colonized with cdiff.Bowel care continues with helpful effect. Encouraged regular care of feet and nails, said he had dizziness episode yesterday after diuretic use. had leg cramps on day shift, denied on HS shift. Uses home cpap decline bioxx.
[2018-12-28] MEDS ORDERED: Lasix80 MG PO (10:34)
[2018-12-28] MEDS ORDERED: HYDR1TAB94 PO (10:36)
[2018-12-28] MEDS ORDERED: METO5 PO (10:36)
[2018-12-28] MEDS ORDERED: SENN187 PO (10:37)
[2018-12-28] MEDS ORDERED: POTA10T PO (10:37)
[2018-12-28] MEDS ORDERED: CEPH500 PO (10:45)
[2018-12-28] MEDS ORDERED: HIGH POTENCY P1 EACH PO (10:45)
--- NOTE | 2018-12-28 14:46 | NUR ---
GETTING PT READY TO GO IV PULLED AND HE GOT UP TO PACK HIS BELONGING AND GOT DIZZY AND SWEATY. LAYED BACK DOWN AND STARTED TO FEEL BETTER. BP GOTTEN AND NO CHANGE IN IT WITH LAYING SITTING AND STANDING. SPOKE WITH MD ON PHONE AND HE ENCOURAGED PT TO DRINK AND EAT AND THEN CHECK HIM. ATE LUNCH AND DRANK A LARGE CUP OF SODA AND JUICE. FELT MUCH BETTER AND ABLE TO WALK AROUND ROOM ASYMPTOMATICALLY. DISCHARGE INSTRUCTIONS COMPLETED AND DISCUSSED WITH PT EXPRESSING UNDERSTANDING. SCRIPTS FAXED TO [facility]. GAVE HIM INFORMATION ABOUT [facility]. TO [facility] VIA W/C WITH FATHER IN LAW.
--- NOTE | 2018-12-29 13:48 | NUR ---
MEDICATION ERROR: RECEIVED CALL FROM PT STATING THE PRESCRIPTION LABEL HE PICKED UP FROM [facility] DIDN'T MATCH WHAT HIS DISCHARGE PAPERWORK SAID FOR HIS CEPHALEXIN. SPOKE WITH [facility] WHO STATED THEY WERE UNSURE WHY THEY WROTE FOR CEPHALEXIN: 2,000 MG PO DAILY WHEN THE ORDER BY DR. CANALES STATED: 2,000 MG PO QID. SPOKE WITH DR. CANALES WHO CLARIFIED THAT THE PT IN FACT NEEDS TO RECEIVE 2,000 MG PO QID FOR [address]. [address] [facility] MERCEDES WHO STATED HE WOULD CORRECT THE ORDER AND THAT THERE WAS AN ERROR. SPOKE WITH PT AND CLARIFIED WHAT DOSE AND FREQUENCY HE SHOULD BE TAKING AND TO RETURN TO [facility] TO RECEIVE AN UPDATED PRESCRIPTION. PT VERBALIZED UNDERSTANDING OF THESE INSTRUCTIONS.
== END 2018-12-28 14:03 | disposition home or self-care (01) | DRG 872 ==
LOC: ER 21:23 → MEDS 22:56 → ICUW 22:56 → PCU 12-15 21:30 → MEDS 12-18 20:11 → ENPENDDIS 12-28 08:00 → MEDS 12-28 14:03
PROVIDERS: Emergency Medicine; Family Medicine; Internal Medicine; ADMIT Hospitalist
DX: A41.01 Sepsis due to Methicillin susceptible Staphylococcus aureus (principal); L03.115 Cellulitis of right lower limb; E66.2 Morbid (severe) obesity with alveolar hypoventilation; N17.9 Acute kidney failure, unspecified; E87.1 Hypo-osmolality and hyponatremia; R65.20 Severe sepsis without septic shock; Z99.89 Dependence on other enabling machines and devices; D64.89 Other specified anemias; D69.6 Thrombocytopenia, unspecified; E87.6 Hypokalemia; F17.200 Nicotine dependence, unspecified, uncomplicated
CPT/HCPCS: 0097U; 36415; 73701; 80048; 80053; 80069; 80202; 82947; 83036; 83605; 85025; 85610; 85730; 87040; 87070; 87077; 87186; 87205; 87324; 93970; 94762; 96361; 96365; 96366; 99284-25; A9270; A9270-GY; J0690; J1170; J1650; J1885; J1940; J3010; J3370; J7030; J7050; J7120; Q9967

== ENCOUNTER → 2023-04-21 | Outpatient (CLI) | payer OTHER ==
[~2023-04-21] MED LIST changes: +HIGH POTENCY P1 EACH PO; +HYDR1TAB94 PO; +Lasix80 MG PO; +METO5 PO; +POTA10T PO; +SENN187 PO
== END ==
LOC: PLD 07:59 → LAB SHORT 07:59
DX: D22.5 Melanocytic nevi of trunk (principal)
CPT/HCPCS: 88305